=== PATIENT | male | born 1990 | race Caucasian/White ===

== ENCOUNTER 2016-12-30 16:46 | Emergency (ER) | payer MEDICAID ==
[~2016-12-30] VITALS: Ht 177.8 cm; Wt 80.0 kg
[2016-12-30] MEDS ORDERED: LORAZEPAM 1MG TABLET PO ONE (17:30)
[2016-12-30 21:44] VITALS: BP 111/69
== END 2016-12-30 21:44 | disposition home or self-care (01) ==
LOC: ER 16:46
DX: F14.10 Cocaine abuse, uncomplicated (principal); R07.89 Other chest pain; F17.210 Nicotine dependence, cigarettes, uncomplicated; F12.10 Cannabis abuse, uncomplicated
CPT/HCPCS: 36415; 84484; 93005; 99291; Z7610